=== PATIENT | male | born 1940 | race Caucasian/White ===

== ENCOUNTER 2020-08-13 10:55 | Emergency (ER) | payer MEDICARE, OTHER ==
[~2020-08-13] VITALS: Ht 200.7 cm; Wt 93.0 kg
[2020-08-13] MEDS ORDERED: L.E.T SOLUTION TP ONE ×2 (11:08→11:30)
[2020-08-13] MEDS ORDERED: AMPICILLIN/SULBACTAM 3 GM in SODIUM CHLORIDE 0.9% 100 ML IV ONE (11:30)
[2020-08-13 11:34] LABS: ANION GAP 6 mmol/L (5-15); CALCIUM 8.8 mg/dL (8.5-10.1); CHLORIDE 98 mmol/L (98-107); CREATININE 0.58 mg/dL (0.7-1.3)
[2020-08-13 11:47] LABS: BASOPHILS % (AUTO) 0 % (0-1); EOSINOPHILS % (AUTO) 0 % (1-7); LYMPHOCYTES % (AUTO) 10 % (22-44); MEAN CORPUSCULAR HEMOGLOBIN 33.9 pg (27.5-34.5); MEAN CORPUSCULAR HGB CONC 34.4 g/dL (33.2-36.2); MEAN PLATELET VOLUME 8.2 fL (7.4-10.4); MONOCYTES % (AUTO) 14 % (2-9); NEUTROPHILS % (AUTO) 75 % (42-75); PLATELET COUNT 249 x10^3/uL (130-400); RED BLOOD COUNT 4.29 x10^6/uL (4.38-5.82); RED CELL DISTRIBUTION WIDTH 13.2 % (9.4-14.8)
[2020-08-13 11:52] LABS: MD NO
[2020-08-13 12:41] VITALS: BP 168/99
[2020-08-13] MEDS ORDERED: LIDOCAINE-MPF 1%, 5ML ONE (12:43)
[2020-08-13] MEDS ORDERED: LIDOCAINE-MPF 1%, 5ML INFIL ONE (13:00)
[2020-08-13] MEDS ORDERED: NEOSPORIN OINT. PKT 1 PACKET ONE (13:08)
--- NOTE | 2020-08-13 13:50 | NUR ---
BREAK RN::PT BP SLIGHTLY IMPROVED, SEE CHARTED. PER ERP DR. FLEMING, PT MAY DC HOME.
== END 2020-08-13 13:55 | disposition home or self-care (01) ==
LOC: ED 13:45
DX: S41.111A Laceration without foreign body of right upper arm, initial encounter (principal); L03.113 Cellulitis of right upper limb; R00.0 Tachycardia, unspecified; W01.0XXA Fall on same level from slipping, tripping and stumbling without subsequent striking against object, initial encounter; Y93.89 Activity, other specified; Y92.009 Unspecified place in unspecified non-institutional (private) residence as the place of occurrence of the external cause; Y99.8 Other external cause status
CPT/HCPCS: 12034; 36415; 80048; 85025; 96365; 99284; J0295